=== PATIENT | male | born 1990 | race Caucasian/White ===

== ENCOUNTER 2018-09-22 15:17 | Inpatient (IN) | payer OTHER ==
[2018-09-22 19:03] VITALS: BMI 25.2
--- NOTE | 2018-09-22 20:14 | HP ---
"COWS - Scale Resting Pulse: 1= DC 81-100 Sweatin=Flushed/Facial Moisture Restless Observation: 1= Difficult to Sit Still Pupil Size: 2= Moderately Dilated (Pupils = 4 mm) Bone or Joint Aches: 1= Mild Discomfort Runny Nose/ Eye Tearin= Nasal Congestion GI Upset > 30mins: 0= None Tremor Observation: 2= Slight Tremor Visible Yawning Observation: 1= 1-2x During Session Anxiety or Irritability: 1=Feels Anxious/Irritable Goose Flesh Skin: 0=Smooth Skin COWS Score: 12 CIWA Score - Admission Criteria [facility] Guidelines: Admission for Medically Managed Detox: Requires at least one of the followin. CIWA greater than 12 2. Seizures within the past 24 hours 3. Delirium tremens within the past 24 hours 4. Hallucinations within the past 24 hours 5. Acute intervention needed for co occurring medical disorder 6. Acute intervention needed for co occurring psychiatric disorder 7. Severe withdrawal that cannot be handled at a lower level of care (continued vomiting, continued diarrhea, abnormal vital signs) requiring intravenous medication and/or fluids 8. Admission ROS [facility] Chief Complaint: Heroin withdrawal. Allergies/Adverse Reactions: Allergies Allergy/AdvReac Type Severity Reaction Status Date / Time No Known Allergies Allergy Verified 09/22/18 18:53 History of Present Illness: First presentation to [facility] of this 28 yom seeking for heroin detox. Heroin use began at age 25. U-tox + for opiates and Fentanyl. States uses IV. Down to 4-5 bags. One overdose - 2018 (Was given Narcan). Has a Narcan Kit at home. Denies sharing needles or works. Has tried stopping on own and only able to stay sober for 1-2 days. Tried Suboxone in past. States when tries to stop starts sweating, shaking and gets diarrhea. Cocaine use began at age 13. (nasal) Utox + 2 x/wk Marijuana use began at age 13. Utox + Nicotine use began at age 13. Denies alcohol or beer use. PMHx: Denies significant PMH. MHHx:Anxiety. Denies depression. Denies thoughts of harming self or others. Patient Name: Fred Ruff Date: 1990 Address: [address] [place] [id number] Sex: Male Rx Written Rx Dispensed Drug Quantity Days Supply Prescriber Name 10/23/2017 10/28/2017 suboxone 8 mg-2 mg sl film 28 14 Joey Howell Search Terms: Fred Speedy, 1990 Search Date: 09/22/2018 08:40:05 PM States Searched: [place], [place], [place], [place], [place], [place], [place] The Drug Utilization Report below displays the controlled substance prescriptions, if any, that were dispensed in the indicated state(s). The information displayed on this report is compiled from requests submitted to other states' PMPs, and accurately reflects the information as returned by them. Blank williamson indicate data not provided by other state. This report was requested by: Sherrie Bryson | Reference #: [id number] Exam Limitations: No Limitations - Ebola screening Have you traveled outside of the country in the last 21 days: No (N) Have you had contact with anyone from an Ebola affected area: No Have you been sick,other than usual withdrawal symptoms: No (Denies recent exposure to measles.) Do you have a fever: No - Review of Systems Constitutional: Chills EENT: reports: Blurred Vision, Dental Problems ((Hole in left tooth.)) Respiratory: reports: No Symptoms reported Cardiac: reports: No Symptoms Reported GI: reports: No Symptoms Reported : reports: No Symptoms Reported Musculoskeletal: reports: Back Pain (r/t withdrawal) Integumentary: reports: No Symptoms Reported Neuro: reports: Tremors Endocrine: reports: No Symptoms Reported Hematology: reports: No Symptoms Reported Psychiatric: reports: Orientated x3 (Unsure of exact date.) Patient History - PPD History Previous Implant?: Yes Documented Results: Negative w/o proof Implanted On Prior [facility] Admission?: No PPD to be Administered?: Yes - Smoking Cessation Smoking history: Current every day smoker Have you smoked in the past 12 months: Yes Aproximately how many cigarettes per day: 1 Hx Chewing Tobacco Use: No Initiated information on smoking cessation: Yes 'Breaking Loose' booklet given: 09/22/18 - Substance & Tx. History Hx Alcohol Use: Yes Hx Substance Use: Yes Substance Use Type: Cocaine, Heroin, Marijuana Hx Substance Use Treatment: No (Has tried stopping on own.) - Substances abused Marijuana/Hashish Substance route: Smoking Frequency: Daily Amount used: 6 blunts Age of first use: 13 Date of last use: 09/22/18 Cocaine Substance route: Inhalation Frequency: Daily Amount used: 5 to 6 bags Age of first use: 13 Date of last use: 09/22/18 Heroin Substance route: Injection Frequency: 3-6 times per week Amount used: 10 cc- 20 to 40 dollars Age of first use: 25 Date of last use: 09/22/18 Admission Physical Exam [facility] - Vital Signs Vital Signs: Vital Signs - 24 hr 09/22/18 18:52 Temperature 98.2 F Pulse Rate 84 Respiratory 20 Rate Blood Pressure 118/69 - Physical General Appearance: Yes: Nourished, Mild Distress, Tremorous, Sweating ( Increased facial mositure) HEENTM: Yes: EOMI (Jerking movement of eyes upon lateral gaze), Hearing grossly Normal, Normocephalic, Normal Voice, CHAN (Pupils = 4 mm), Pharynx Normal Respiratory: Yes: Lungs Clear, Normal Breath Sounds, No Respiratory Distress Neck: Yes: No masses,lesions,Nodules, Supple Breast: Yes: Breast Exam Deferred Cardiology: Yes: Regular Rhythm, Regular Rate, S1, S2 Abdominal: Yes: Non Tender, Flat, Soft, Increased Bowel Sounds Genitourinary: Yes: Within Normal Limits Back: Yes: Normal Inspection Musculoskeletal: Yes: full range of Motion, Gait Steady Extremities: Yes: Normal Capillary Refill, Normal Range of Motion, Non-Tender, Tremors (Mild tremors w/ arms elevated) Neurological: Yes: dining room busser II-XII NML intact (Jerking movement of eyes upon lateral gaze), Alert, Motor Strength 5/5, Normal Mood/Affect Integumentary: Yes: Normal Color, Warm, Rash (Macularpapular generalized. (Not on feet or hands)), Track Riley (Old and new track riley both arms. (R) arm w/ some increased warmth at needle line. No tenderness or induration.) Lymphatic: Yes: Within Normal Limits - Diagnostic (1) Opioid dependence with withdrawal Current Visit: Yes Status: Acute (2) Cocaine dependence, uncomplicated Current Visit: Yes Status: Chronic (3) Cannabis dependence, uncomplicated Current Visit: Yes Status: Chronic (4) Nystagmus Current Visit: Yes Status: Acute (5) IVDU (intravenous drug user) Current Visit: Yes Status: Chronic (6) Generalized maculopapular rash Current Visit: Yes Status: Chronic Comment: Non-itching skin. Cleared for Admission S - Detox or Rehab [facility] Level of Care: Medically Managed Detox Regimen/Protocol: Methadone Claeared for Rehab Admission: No Breathalyzer - Breathalyzer Breathalyzer: 0 Urine Drug Screen - Test Device Lot number: [id number] Expiration date: 06/18/20 - Control Is test valid?: Yes - Results Drug screen NEGATIVE: No Urine drug screen results: THC-Marijuana, ZARIA-Cocaine, FEN-Fentanyl, MOP-Opiates Inpatient Rehab Admission - Rehab Decision to Admit Inpatient rehab admission?: No"
[2018-09-22] MEDS ORDERED: NICOTINE POLACRILEX 2 MG GUM BUC PRN (20:43)
[2018-09-22] MEDS ORDERED: MELATONIN 5 MG TABLETS PO PRN (20:43)
[2018-09-22] MEDS ORDERED: MAGNESIUM CITRATE 300 ML BOTTLE PO PRN (20:43)
[2018-09-22] MEDS ORDERED: MENTHOL/PHENOL 1 EACH UD MM PRN (20:43)
[2018-09-22] MEDS ORDERED: MAGNESIUM HYDROX 2400MG/30ML ORAL SUSPENSION 30 ML CUP PO PRN (20:43)
[2018-09-22] MEDS ORDERED: cloNIDine HCL 0.1 MG TABLET PO PRN (20:43)
[2018-09-22] MEDS ORDERED: ACETAMINOPHEN 325 MG TABLET (FP) PO PRN ×2 (20:43)
[2018-09-22] MEDS ORDERED: METHOCARBAMOL 500 MG TABLET PO PRN (20:43)
[2018-09-22] MEDS ORDERED: MAG HYDROX/AL HYDROX/SIMETH 30 ML UNIT-DOSE CUP PO PRN (20:43)
[2018-09-22] MEDS ORDERED: IBUPROFEN 400 MG TABLET (FP) PO PRN (20:43)
[2018-09-22] MEDS ORDERED: BISMUTH SUBSALICYLATE 524 MG/30 ML UD PO PRN (20:43)
[2018-09-22] MEDS ORDERED: BENZOCAINE 20 % GEL TUBE MM PRN (20:51)
[2018-09-22] MEDS ORDERED: THIAMINE HCL 100 MG TABLET (FP) PO SCH (22:00)
[2018-09-22] MEDS ORDERED: METHADONE HCL 10 MG TABLET (FOR DETOX USE ONLY) PO ONE (23:00)
[2018-09-23 00:45] LABS: EPI CELLS 0.6 /HPF (0-5/HPF); HYALINE CASTS 4 /lpf (0-8); URINE APPEARANCE CLEAR; URINE BACTERIA 6.1 /hpf (NEGATIVE); URINE BILIRUBIN NEGATIVE (NEGATIVE); URINE COLOR YELLOW; URINE GLUCOSE (UA) NEGATIVE (NEGATIVE); URINE KETONE TRACE (NEGATIVE); URINE LEUK ESTERASE TRACE (NEGATIVE); URINE NITRITE NEGATIVE (NEGATIVE); URINE PROTEIN NEGATIVE (NEGATIVE); URINE RBC 1 /hpf (0-4); URINE WBC 4 /hpf (0-5)
--- NOTE | 2018-09-23 09:37 | EKG ---
Test Reason : Blood Pressure : / mmHG Vent. Rate : 082 BPM Atrial Rate : 082 BPM P-R Int : 166 ms QRS Dur : 080 ms QT Int : 362 ms P-R-T Axes : 071 077 041 degrees QTc Int : 422 ms NORMAL SINUS RHYTHM NORMAL ECG NO PREVIOUS ECGS AVAILABLE Confirmed by CHANTE OWENS, DAVID ([id number]) on 09/23/2018 9:37:38 AM Referred By: Confirmed By:DAVID SHARIF MD
[2018-09-23] MEDS ORDERED: METHADONE HCL 5 MG TABLET (FOR DETOX USE ONLY) PO ONE ×2 (10:00→10:45)
[2018-09-23] MEDS ORDERED: PRENATAL VITAMINS W/ FOLIC ACID TABLET (FP) PO SCH (10:00)
[2018-09-23] MEDS ORDERED: diazePAM 5 MG TABLET PO PRN (10:43)
[2018-09-23 12:51] LABS: HEMATOCRIT 39.3 % (35.4-49); HEMOGLOBIN 13.1 GM/dL (11.7-16.9); MCH 29.5 pg (25.7-33.7); MCHC 33.5 g/dl (32.0-35.9); MEAN CELL VOLUME 88.2 fl (80-96); MEAN PLT VOLUME 7.5 fl (7.5-11.1); PLATELET COUNT 307 K/MM3 (134-434); RBC 4.45 M/mm3 (4.00-5.60); RDW 13.6 % (11.9-15.9); WHITE BLOOD COUNT 8.8 K/mm3 (4.0-10.0)
[2018-09-23 12:56] LABS: ALBUMIN 3.7 g/dl (3.4-5.0); BILIRUBIN,TOTAL 0.3 mg/dL (0.2-1); CALCIUM 9.7 mg/dL (8.5-10.1); CREATININE 0.8 mg/dL (0.55-1.3); POTASSIUM 4.3 mmol/L (3.5-5.1); TOT PROT 7.8 g/dl (6.4-8.2)
[2018-09-23 13:25] VITALS: BP 117/76; PULSE 117; TEMP 99.1
--- NOTE | 2018-09-23 14:12 | DS ---
[facility] Detox Discharge Summary Admission Date: 09/22/18 Discharge Date: 09/23/18 - History Present History: Opioid Dependence Additional Comments: 28 years old male admitted on 09/22/18 for opiate withdrawal stabilization requests emmy up the methadone dosage discuss methadone maintenance program emmy up methadone dosage vs opiate detox treatment facility methadone dosage adjustment patient agrees to stay patient received adjusted methadone dosage after lunch patient requests more methadone patient insists to leave the detox facility encourage the patient to attend methadone assisted treatment program - Physical Exam Results Vital Signs: Vital Signs Temperature 99.1 F 09/23/18 12:00 Pulse Rate 117 H 09/23/18 12:00 Respiratory Rate 18 09/23/18 12:00 Blood Pressure 117/76 09/23/18 12:00 O2 Sat by Pulse Oximetry (%) Pertinent Admission Physical Exam Findings: opiate withdrawal sx Laboratory Last Values WBC 8.8 K/mm3 (4.0-10.0) 09/23/18 09:10 RBC 4.45 M/mm3 (4.00-5.60) 09/23/18 09:10 Hgb 13.1 GM/dL (11.7-16.9) 09/23/18 09:10 Hct 39.3 % (35.4-49) 09/23/18 09:10 MCV 88.2 fl (80-96) 09/23/18 09:10 MCH 29.5 pg (25.7-33.7) 09/23/18 09:10 MCHC 33.5 g/dl (32.0-35.9) 09/23/18 09:10 RDW 13.6 % (11.9-15.9) 09/23/18 09:10 Plt Count 307 K/MM3 (134-434) 09/23/18 09:10 MPV 7.5 fl (7.5-11.1) 09/23/18 09:10 Sodium 139 mmol/L (136-145) 09/23/18 09:10 Potassium 4.3 mmol/L (3.5-5.1) 09/23/18 09:10 Chloride 105 mmol/L (98-107) 09/23/18 09:10 Carbon Dioxide 29 mmol/L (21-32) 09/23/18 09:10 Anion Gap 5 MMOL/L (8-16) L 09/23/18 09:10 BUN 11 mg/dL (7-18) 09/23/18 09:10 Creatinine 0.8 mg/dL (0.55-1.3) 09/23/18 09:10 Est GFR (CKD-EPI)AfAm 139.91 09/23/18 09:10 Est GFR (CKD-EPI)NonAf 120.72 09/23/18 09:10 Random Glucose 89 mg/dL (74-106) 09/23/18 09:10 Calcium 9.7 mg/dL (8.5-10.1) 09/23/18 09:10 Total Bilirubin 0.3 mg/dL (0.2-1) 09/23/18 09:10 AST 54 U/L (15-37) H 09/23/18 09:10 ALT 79 U/L (13-61) H 09/23/18 09:10 Alkaline Phosphatase 89 U/L (45-117) 09/23/18 09:10 Total Protein 7.8 g/dl (6.4-8.2) 09/23/18 09:10 Albumin 3.7 g/dl (3.4-5.0) 09/23/18 09:10 Urine Color Yellow 09/22/18 21:55 Urine Appearance Clear 09/22/18 21:55 Urine pH 6.0 (5.0-8.0) 09/22/18 21:55 Ur Specific [place] 1.023 (1.010-1.035) 09/22/18 21:55 Urine Protein Negative (NEGATIVE) 09/22/18 21:55 Urine Glucose (UA) Negative (NEGATIVE) 09/22/18 21:55 Urine Ketones Trace (NEGATIVE) H 09/22/18 21:55 Urine Blood Negative (NEGATIVE) 09/22/18 21:55 Urine Nitrite Negative (NEGATIVE) 09/22/18 21:55 Urine Bilirubin Negative (NEGATIVE) 09/22/18 21:55 Urine Urobilinogen 1.0 mg/dL (0.2-1.0) 09/22/18 21:55 Ur Leukocyte Esterase Trace (NEGATIVE) 09/22/18 21:55 Urine WBC (Auto) 4 /hpf (0-5) 09/22/18 21:55 Urine RBC (Auto) 1 /hpf (0-4) 09/22/18 21:55 Urine Casts (Auto) 4 /lpf (0-8) 09/22/18 21:55 U Epithel Cells (Auto) 0.6 /HPF (0-5/HPF) 09/22/18 21:55 Urine Bacteria (Auto) 6.1 /hpf (NEGATIVE) 09/22/18 21:55 lab noted - Treatment Hospital Course: Detox Protocol Followed, Responded well Patient has Accepted a Rehab Referral to: consider methadone assisted treatment program - Medication Discharge Medications: Ambulatory Orders NK [No Known Home Medication] 09/22/18 - Diagnosis (1) Opioid dependence with withdrawal Status: Acute - AMA Did Patient Leave Against Medical Advice: Yes
[2018-09-24] MEDS ORDERED: diazePAM 5 MG TABLET PO PRN (00:01)
[2018-09-24] MEDS ORDERED: METHADONE HCL 10 MG TABLET (FOR DETOX USE ONLY) PO ONE (10:00)
[2018-09-25] MEDS ORDERED: METHADONE HCL 5 MG TABLET (FOR DETOX USE ONLY) PO ONE (10:00)
[2018-09-26] MEDS ORDERED: METHADONE HCL 5 MG TABLET (FOR DETOX USE ONLY) PO ONE (06:00)
== END 2018-09-23 12:35 | disposition left against medical advice (07) | DRG 770 ==
LOC: YASAS 15:17 → Y3N 20:45
PROVIDERS: ADMIT Surgery; ATTEND Surgery
PROC: HZ2ZZZZ Detoxification Services for Substance Abuse Treatment (ICD-10-PCS; principal; 2018-09-22)
DX: F11.23 Opioid dependence with withdrawal (principal); F14.20 Cocaine dependence, uncomplicated; F12.20 Cannabis dependence, uncomplicated; F17.210 Nicotine dependence, cigarettes, uncomplicated; H55.00 Unspecified nystagmus; L27.0 Generalized skin eruption due to drugs and medicaments taken internally
CPT/HCPCS: 36415; 80053; 81003; 85027; 86593; 87389; 93005; 93010